=== PATIENT | male | born 1950 | race Asian ===

== ENCOUNTER → 2016-10-04 | Outpatient (CLI) | payer OTHER ==
[~2016-10-04] MED LIST: AZEL0.1S; DEXL60CA3 PO; HYDR25TA4 PO; METF-489 PO; MONT10TA34 PO; SIMV-13 PO; TAMS0.4C36 PO; TRIP2.5T9 PO
[2016-10-04 09:47] LABS: Albumin 4.3 g/dL (3.4-5.0); BUN/Creatinine Ratio 16.7; Bilirubin, Total 0.7 mg/dL (0.2-1.0); Potassium 3.7 mmol/L (3.5-5.1); Total Protein 8.1 g/dL (6.4-8.2)
== END | disposition home or self-care (01) ==
LOC: LAB 08:54
PROVIDERS: ATTEND Internal Medicine
DX: E78.5 Hyperlipidemia, unspecified (principal); Z12.39 Encounter for other screening for malignant neoplasm of breast; I10 Essential (primary) hypertension
CPT/HCPCS: 36415; 80053; 80061; 82043; 82306; 83036

== ENCOUNTER → 2016-12-26 | Outpatient (CLI) | payer OTHER ==
[2016-12-26 09:20] LABS: Basophils # (auto) 0 uL; Basophils % (auto) 0.6 % (0.0-2.0); Eosinophils # (auto) 0.4 uL; Eosinophils % (auto) 8.1 % (0.0-7.0); Hematocrit 45.6 % (41.0-53.0); Hemoglobin 15.7 g/dL (13.5-17.5); Lymphocytes # (auto) 1.7 uL; Lymphocytes % (auto) 34.5 % (10.0-50.0); Mean Corpuscular Hgb Conc. 34.5 g/dL (32.0-36.0); Mean Corpuscular Volume 89.7 fL (80.0-100.0); Mean Platelet Volume 8.8 fL (7.4-10.4); Monocytes # (auto) 0.5 uL; Monocytes % (auto) 9.7 % (0.0-12.0); Neutrophils # (auto) 2.4 uL; Neutrophils % (auto) 47.1 % (37.0-80.0); Platelet Count (auto) 234 10^3/uL (140-450); Red Cell Distribution Width 13.1 % (11.6-16.0); White Blood Cell 5.1 10^3/uL (4.4-10.8)
[2016-12-26 09:43] LABS: Albumin 4.2 g/dL (3.4-5.0); BUN/Creatinine Ratio 20.7; Bilirubin, Total 0.9 mg/dL (0.2-1.0); Calcium 8.7 mg/dL (8.5-10.1); Potassium 3.4 mmol/L (3.5-5.1); Total Protein 8.1 g/dL (6.4-8.2)
== END | disposition home or self-care (01) ==
LOC: LAB 08:50
PROVIDERS: ATTEND Internal Medicine Cardiovascular Disease
DX: R07.9 Chest pain, unspecified (principal)
CPT/HCPCS: 36415; 80053; 80061; 85025; 85730

== ENCOUNTER → 2017-01-30 | Outpatient (CLI) | payer OTHER ==
[~2017-01-30] VITALS: Ht 170.2 cm; Wt 64.6 kg
[~2017-01-30] MED LIST changes: +ADENOSINE 54 MG in GIVE UN-DILUTED 0 ML IV ONE; +ADENOSINE 56 MG in GIVE UN-DILUTED 0 ML IV ONE; +ALBUTEROL SULF 2.5 MG/0.5ML(0.5%) NEB SOLN NEB ONE; +ALBUTEROL SULF 2.5 MG/0.5ML(0.5%) NEB SOLN ONE; +IPRATROPIUM BROM 0.5 MG/2.5ML INH SOL NEB ONE; +IPRATROPIUM BROM 0.5 MG/2.5ML INH SOL ONE
== END | disposition home or self-care (01) ==
LOC: XY 07:44
PROVIDERS: ATTEND Internal Medicine Cardiovascular Disease
DX: I08.3 Combined rheumatic disorders of mitral, aortic and tricuspid valves (principal); I20.9 Angina pectoris, unspecified
CPT/HCPCS: 78452; 93017; 93306; 94640; A9500; J0153

== ENCOUNTER → 2017-03-02 | Day surgery (SDC) | payer OTHER ==
[2017-02-26 13:12] LABS: Basophils # (auto) 0 uL; Basophils % (auto) 0.7 % (0.0-2.0); CONDITION Y; Eosinophils # (auto) 0.3 uL; Eosinophils % (auto) 5.4 % (0.0-7.0); Hematocrit 43.6 % (41.0-53.0); Hemoglobin 14.9 g/dL (13.5-17.5); Lymphocytes # (auto) 1.7 uL; Lymphocytes % (auto) 33.9 % (10.0-50.0); Mean Corpuscular Hemoglobin 31.4 pg (28.0-32.0); Mean Corpuscular Hgb Conc. 34.1 g/dL (32.0-36.0); Mean Platelet Volume 9.7 fL (7.4-10.4); Monocytes # (auto) 0.4 uL; Monocytes % (auto) 8.8 % (0.0-12.0); Neutrophils # (auto) 2.6 uL; Neutrophils % (auto) 51.2 % (37.0-80.0); Platelet Count (auto) 220 10^3/uL (140-450); Red Cell Distribution Width 13.4 % (11.6-16.0); White Blood Cell 5.1 10^3/uL (4.4-10.8)
[2017-02-26 13:24] LABS: INR 0.97 (0.9-1.15); Partial Thromboplastin Time 29.5 sec (22.64-33.71); Prothrombin Time 10.6 sec (9.37-12.3)
[~2017-03-02] VITALS: Ht 170.2 cm; Wt 65.8 kg
[~2017-03-02] MED LIST changes: -ADENOSINE 54 MG in GIVE UN-DILUTED 0 ML IV ONE; -ADENOSINE 56 MG in GIVE UN-DILUTED 0 ML IV ONE; -ALBUTEROL SULF 2.5 MG/0.5ML(0.5%) NEB SOLN NEB ONE; -ALBUTEROL SULF 2.5 MG/0.5ML(0.5%) NEB SOLN ONE; +FLUMAZENIL 0.1 MG/ML INJ 10ML MDV IV ONE; -IPRATROPIUM BROM 0.5 MG/2.5ML INH SOL NEB ONE; -IPRATROPIUM BROM 0.5 MG/2.5ML INH SOL ONE; +NALOXONE HCL 0.4 MG/ML VIAL ONE; +SODIUM CHLORIDE LOCK 10 ML ONE; +diphenhdrAMINE HCL 50 MG/1 ML VL ONE
[2017-03-02] MEDS: MIDAZOLAM HCL 5 MG/ML-1ML VIAL ONE ×2 (08:59→09:06)
[2017-03-02] MEDS: fentaNYL CITRATE 100 MCG/2 ML VL ONE ×2 (08:59→09:06)
[2017-03-02 10:07] VITALS: BP 120/88
== END | disposition home or self-care (01) ==
LOC: GI 07:44
PROVIDERS: ATTEND Internal Medicine Gastroenterology
DX: K63.5 Polyp of colon (principal); K64.8 Other hemorrhoids; E11.9 Type 2 diabetes mellitus without complications
CPT/HCPCS: 36415; 45380; 82962; 85025; 85610; 85730; J1200; J2250; J3010

== ENCOUNTER 2020-05-07 21:11 | Inpatient (IN) | payer OTHER, MEDICAID ==
[~2020-05-07] VITALS: Ht 170.2 cm; Wt 61.5 kg
[~2020-05-07 21:11] MED LIST changes: -DEXL60CA3 PO; +DEXL60CA4 PO; -FLUMAZENIL 0.1 MG/ML INJ 10ML MDV IV ONE; -NALOXONE HCL 0.4 MG/ML VIAL ONE; -SODIUM CHLORIDE LOCK 10 ML ONE; -diphenhdrAMINE HCL 50 MG/1 ML VL ONE
[2020-05-07 22:14] LABS: Basophils # (auto) 0 10 ^3/uL (0-0.2); Basophils % (auto) 0.7 % (0.0-2.0); Eosinophils # (auto) 0.2 10 ^3/uL (0-0.8); Eosinophils % (auto) 4.6 % (0.0-7.0); Hematocrit 37.5 % (41.0-53.0); Hemoglobin 13.1 g/dL (13.5-17.5); Lymphocytes # (auto) 1.4 10 ^3/uL (0.4-5.4); Lymphocytes % (auto) 25.1 % (10.0-50.0); Mean Corpuscular Hemoglobin 31.6 pg (28.0-32.0); Mean Corpuscular Hgb Conc. 34.8 g/dL (32.0-36.0); Mean Corpuscular Volume 90.8 fL (80.0-100.0); Monocytes # (auto) 0.6 10 ^3/uL (0-1.3); Monocytes % (auto) 11.5 % (0.0-12.0); Neutrophils # (auto) 3.1 10 ^3/uL (1.6-8.6); Neutrophils % (auto) 58.1 % (37.0-80.0); Platelet Count (auto) 173 10^3/uL (140-450); Red Blood Cells 4.13 10^6/uL (4.5-5.90); Red Cell Distribution Width 12.7 % (11.8-14.3); White Blood Cell 5.4 10^3/uL (4.4-10.8)
[2020-05-07 22:28] LABS: INR 1.03 (0.9-1.15); Partial Thromboplastin Time 29.9 sec (23.0-31.2)
[2020-05-07 22:32] LABS: Alanine Aminotransferase 30 U/L (16-61); Albumin 3.9 g/dL (3.4-5.0); Anion Gap 10 (5-15); Aspartate Aminotransferase 39 U/L (15-37); BUN/Creatinine Ratio 15.1; Blood Urea Nitrogen 16 mg/dL (7-18); Carbon Dioxide 28 mmol/L (21-32); Chloride 100 mmol/L (98-107); GFR African American 89 mL/min; GFR Non-African American 74 mL/min; Glucose 109 mg/dL (74-106); Sodium 138 mmol/L (136-145)
[2020-05-07 22:36] LABS: Alkaline Phosphatase 64 U/L (45-117); Bilirubin, Total 0.5 mg/dL (0.2-1.0); Total Protein 7.3 g/dL (6.4-8.2)
[2020-05-07 23:33] LABS: Urine Bacteria NONE SEEN /hpf (None Seen); Urine Blood Negative /uL (Negative); Urine Mucus FEW (None Seen); Urine Specific Gravity 1.005 (1.001-1.035); Urine WBC <1 /hpf (0 - 3)
[2020-05-08] VITALS (7 sets, daily range): BP systolic 113–143; BP diastolic 69–98
[2020-05-08] MEDS ORDERED: ONDANSETRON HCL 4 MG/2 ML VIAL IV PRN (03:30)
[2020-05-08] MEDS ORDERED: NITROGLYCERIN 0.4 MG SL TAB SL PRN (03:30)
[2020-05-08] MEDS ORDERED: DOCUSATE SOD 100 MG CAP PO PRN (03:30)
[2020-05-08] MEDS ORDERED: ACETAMINOPHEN 325 MG TAB PO PRN (03:30)
[2020-05-08] MEDS ORDERED: POTASSIUM CHL 20 Meq TABLET PO ONE (03:30)
[2020-05-08] MEDS ORDERED: MORPHINE SULF INJ 2 MG/ML SYRINGE 1ML IV PRN ×2 (03:30)
[2020-05-08] MEDS: SODIUM CHLOR 0.9% PF (SALINE LOCK) 10ML VIAL/SYR IV SCH ×3 (05:47→21:48)
[2020-05-08 08:34] LABS: Basophils # (auto) 0 10 ^3/uL (0-0.2); Basophils % (auto) 0.8 % (0.0-2.0); Eosinophils # (auto) 0.2 10 ^3/uL (0-0.8); Eosinophils % (auto) 5.1 % (0.0-7.0); Hematocrit 41.1 % (41.0-53.0); Lymphocytes # (auto) 1.2 10 ^3/uL (0.4-5.4); Lymphocytes % (auto) 25.1 % (10.0-50.0); Mean Corpuscular Hemoglobin 31.3 pg (28.0-32.0); Mean Corpuscular Hgb Conc. 34.1 g/dL (32.0-36.0); Mean Corpuscular Volume 91.7 fL (80.0-100.0); Monocytes # (auto) 0.4 10 ^3/uL (0-1.3); Monocytes % (auto) 9.4 % (0.0-12.0); Neutrophils # (auto) 2.8 10 ^3/uL (1.6-8.6); Neutrophils % (auto) 59.6 % (37.0-80.0); Platelet Count (auto) 186 10^3/uL (140-450); Red Blood Cells 4.48 10^6/uL (4.5-5.90); Red Cell Distribution Width 12.9 % (11.8-14.3); White Blood Cell 4.7 10^3/uL (4.4-10.8)
[2020-05-08 08:51] LABS: Albumin 4.2 g/dL (3.4-5.0); Calcium 8.9 mg/dL (8.5-10.1); Potassium 3.7 mmol/L (3.5-5.1)
[2020-05-08 08:56] LABS: BUN/Creatinine Ratio 16.1; Bilirubin, Total 0.8 mg/dL (0.2-1.0); Total Protein 7.3 g/dL (6.4-8.2)
[2020-05-08 09:38] LABS: Cholesterol 132 mg/dL (< 200)
[2020-05-08 09:41] LABS: HDL Cholesterol 68 mg/dL (40-59); LDL Cholesterol 60 mg/dL (< 100); Triglycerides 91 mg/dL (< 150)
[2020-05-08] MEDS: HCTZ 25 MG TAB PO SCH (10:00)
[2020-05-08] MEDS: ASPirin 81 mg TAB PO SCH (10:00)
[2020-05-08] MEDS: MONTELUKAST SODIUM 10 MG TAB PO SCH (10:00)
[2020-05-08] MEDS: TAMSULOSIN HYDROCHLORIDE 0.4 MG CAP PO SCH (10:00)
[2020-05-08] MEDS: PANTOPRAZOLE 40 MG TAB PO SCH (10:00)
[2020-05-08] MEDS: MULTIPLE VITAMIN TAB PO SCH (10:00)
[2020-05-08] MEDS ORDERED: LORazepam 2MG/ML-1ML VIAL IV PRN (14:45)
[2020-05-08] MEDS ORDERED: ATORVASTATIN 20 MG TAB PO SCH ×2 (18:00)
[2020-05-09 05:13] VITALS: BP 105/70
[2020-05-09] MEDS: SODIUM CHLOR 0.9% PF (SALINE LOCK) 10ML VIAL/SYR IV SCH ×2 (05:59→14:27)
[2020-05-09 09:00] VITALS: BP 119/75
[2020-05-09] MEDS: MONTELUKAST SODIUM 10 MG TAB PO SCH (11:11)
[2020-05-09] MEDS: PANTOPRAZOLE 40 MG TAB PO SCH (11:11)
[2020-05-09] MEDS: ASPirin 81 mg TAB PO SCH (11:12)
[2020-05-09] MEDS: TAMSULOSIN HYDROCHLORIDE 0.4 MG CAP PO SCH (11:12)
[2020-05-09] MEDS: MULTIPLE VITAMIN TAB PO SCH (11:12)
[2020-05-09] MEDS: HCTZ 25 MG TAB PO SCH (11:13)
[2020-05-09 13:00] VITALS: BP 114/75
[2020-05-09 15:18] VITALS: BP 119/75
== END 2020-05-09 17:00 | disposition home or self-care (01) | DRG 69 ==
LOC: ER 21:11 → TELE 21:12 → TELE-WESTW 05-08 05:38
PROVIDERS: ADMIT Nurse Practitioner Family; ATTEND Nurse Practitioner Family
DX: G45.9 Transient cerebral ischemic attack, unspecified (principal); J45.909 Unspecified asthma, uncomplicated; E11.9 Type 2 diabetes mellitus without complications; E78.5 Hyperlipidemia, unspecified; I10 Essential (primary) hypertension; N40.0 Benign prostatic hyperplasia without lower urinary tract symptoms; E87.6 Hypokalemia; R20.0 Anesthesia of skin; R55 Syncope and collapse; M48.02 Spinal stenosis, cervical region; Z86.73 Personal history of transient ischemic attack (TIA), and cerebral infarction without residual deficits; Z79.82 Long term (current) use of aspirin; Z79.899 Other long term (current) drug therapy
CPT/HCPCS: 36415; 70450; 70551; 72125; 80053; 80061; 81001; 83036; 84443; 84484; 85025; 85610; 85730; 93005; 93306; G0378

== ENCOUNTER 2023-10-21 20:07 | Inpatient (IN) | payer OTHER, MEDICAID ==
[~2023-10-21] VITALS: Ht 170.2 cm; Wt 50.0 kg
[~2023-10-21 20:07] MED LIST changes: +MONT-8 PO; -MONT10TA34 PO; -SIMV-13 PO; +SIMV40TA18 PO; +TRIP1TAB PO; -TRIP2.5T9 PO
[2023-10-21] MEDS: SODIUM CHLORIDE 0.9% 1,000 ML IV ONE (21:35)
[2023-10-21] MEDS: SODIUM CHLORIDE 0.9% 500 ML IVB ONE (21:36)
[2023-10-21 21:41] LABS: Basophils # (auto) 0 10 ^3/uL (0-0.2); Basophils % (auto) 0.1 % (0.0-2.0); Eosinophils # (auto) 0 10 ^3/uL (0-0.8); Hematocrit 39.1 % (41.0-53.0); Hemoglobin 13.1 g/dL (13.5-17.5); Lymphocytes # (auto) 0.2 10 ^3/uL (0.4-5.4); Lymphocytes % (auto) 1.5 % (10.0-50.0); Mean Corpuscular Hemoglobin 30.3 pg (28.0-32.0); Mean Corpuscular Hgb Conc. 33.6 g/dL (32.0-36.0); Mean Corpuscular Volume 90.1 fL (80.0-100.0); Monocytes # (auto) 0.8 10 ^3/uL (0-1.3); Monocytes % (auto) 5.2 % (0.0-12.0); Neutrophils # (auto) 14.5 10 ^3/uL (1.6-8.6); Neutrophils % (auto) 93.2 % (37.0-80.0); Red Blood Cells 4.34 10^6/uL (4.5-5.90); Red Cell Distribution Width 13.9 % (11.8-14.3); White Blood Cell 15.6 10^3/uL (4.4-10.8)
[2023-10-21 21:53] VITALS: PULSE 96; RESP 26; O2SAT 97
[2023-10-21 22:00] LABS: Alanine Aminotransferase 20 U/L (7-40); Alkaline Phosphatase 52 U/L (46-116); Anion Gap 9 (5-15); Aspartate Aminotransferase 21 U/L (13-40); BUN/Creatinine Ratio 13.7 (10.0-20.0); Bilirubin, Total 0.9 mg/dL (0.2-1.0); Blood Urea Nitrogen 14 mg/dL (9-23); Calcium 8.6 mg/dL (8.7-10.4); Carbon Dioxide 23 mmol/L (20-30); Chloride 97 mmol/L (98-107); Glucose 219 mg/dL (74-106); Magnesium 1.6 mg/dL (1.6-2.6); Potassium 3.3 mmol/L (3.5-5.1); Sodium 129 mmol/L (136-145); Total Protein 6.4 g/dL (5.7-8.2)
[2023-10-21 22:53] LABS: Urine Bacteria MANY /hpf (None Seen); Urine Blood Negative /uL (Negative); Urine Clarity Clear (Clear); Urine Color Yellow (Yellow); Urine Mucus FEW (None Seen); Urine Protein, UAD TRACE (Negative); Urine Specific Gravity 1.018 (1.001-1.035); Urine Urobilinogen Normal (Negative); Urine WBC 14 /hpf (0 - 3)
[2023-10-22] MEDS: cefTRIAXone 1GM/50ML D5W 50 ML IV ONE (01:30)
[2023-10-22] MEDS: POTASSIUM CHL 20 Meq TABLET PO ONE (01:30)
[2023-10-22 02:22] LABS: Lactic Acid w/Reflex 2.2 mmol/L (0.4-2.0)
[2023-10-22 03:51] LABS: Basophils # (auto) 0 10 ^3/uL (0-0.2); Eosinophils # (auto) 0 10 ^3/uL (0-0.8); Eosinophils % (auto) 0.1 % (0.0-7.0); Hematocrit 38.3 % (41.0-53.0); Hemoglobin 12.4 g/dL (13.5-17.5); Lymphocytes # (auto) 0.4 10 ^3/uL (0.4-5.4); Lymphocytes % (auto) 2.9 % (10.0-50.0); Mean Corpuscular Hemoglobin 29.8 pg (28.0-32.0); Mean Corpuscular Hgb Conc. 32.4 g/dL (32.0-36.0); Monocytes # (auto) 0.7 10 ^3/uL (0-1.3); Monocytes % (auto) 5.9 % (0.0-12.0); Neutrophils # (auto) 11.4 10 ^3/uL (1.6-8.6); Neutrophils % (auto) 91.1 % (37.0-80.0); Red Blood Cells 4.16 10^6/uL (4.5-5.90); Red Cell Distribution Width 14.1 % (11.8-14.3); White Blood Cell 12.5 10^3/uL (4.4-10.8)
[2023-10-22] MEDS ORDERED: ACETAMINOPHEN 325 MG TAB PO PRN (04:00)
[2023-10-22] MEDS ORDERED: DEXTROSE (50%) 50ML SYRG IV PRN (04:00)
[2023-10-22] MEDS ORDERED: ONDANSETRON HCL 4 MG/2 ML VIAL IV PRN (04:00)
[2023-10-22] MEDS ORDERED: DOCUSATE SOD 100 MG CAP PO PRN (04:00)
[2023-10-22] MEDS ORDERED: VANCOMYCIN PER PHARMACY 0 MG IV SCH (04:00)
[2023-10-22] MEDS ORDERED: HYDROcodone-ACET 5/325MG TAB PO PRN (04:00)
[2023-10-22] MEDS: SODIUM CHLORIDE 0.9% 1,000 ML IV SCH ×2 (04:05→13:24)
[2023-10-22 04:07] LABS: Alanine Aminotransferase 20 U/L (7-40); Albumin 3.5 g/dL (3.2-4.8); Alkaline Phosphatase 45 U/L (46-116); Anion Gap 7 (5-15); Aspartate Aminotransferase 22 U/L (13-40); Bilirubin, Total 0.6 mg/dL (0.2-1.0); Blood Urea Nitrogen 13 mg/dL (9-23); Calcium 7.8 mg/dL (8.7-10.4); Carbon Dioxide 23 mmol/L (20-30); Chloride 100 mmol/L (98-107); Glucose 196 mg/dL (74-106); Potassium 3.3 mmol/L (3.5-5.1); Sodium 130 mmol/L (136-145); Total Protein 5.8 g/dL (5.7-8.2)
[2023-10-22] MEDS: VANCOMYCIN 1GM/200ML 200 ML IV ONE (04:10)
[2023-10-22] MEDS ORDERED: NITROGLYCERIN 0.4 MG SL TAB SL PRN (05:00)
[2023-10-22] MEDS ORDERED: MORPHINE SULFATE INJ 2 MG/ml SYRG IV PRN (05:00)
[2023-10-22] MEDS: ACCU-CHEK COMFORT CURVE STRIP VI SCH (05:58)
[2023-10-22] MEDS: InsuLIN REG 1unit/0.01ml Soln (100units/ml) SC SCH ×2 (05:59→21:52)
[2023-10-22] MEDS: CALCIUM GLUC 1,000mg/50ml-NS 50 ML IV ONE (07:43)
[2023-10-22 07:44] VITALS: PULSE 83; RESP 16; O2SAT 95
[2023-10-22] MEDS: cefTRIAXone 1GM/50ML D5W 50 ML IV SCH (09:04)
[2023-10-22] MEDS: POTASSIUM EFFERVESENT TAB 25 MEQ PO ONE (13:25)
[2023-10-22] MEDS: ASPirin 81 mg TAB PO ONE (13:25)
[2023-10-22 13:47] LABS: Triglycerides 109 mg/dL (< 150)
[2023-10-22 13:48] LABS: LDL Cholesterol 25 mg/dL (< 100)
[2023-10-22 13:49] LABS: Cholesterol 86 mg/dL (< 200); HDL Cholesterol 45 mg/dL (40-59)
[2023-10-22] MEDS ORDERED: VANCOMYCIN 500 MG in D5W 5% 100 ML IV SCH (14:00)
[2023-10-22] MEDS: TAMSULOSIN HYDROCHLORIDE 0.4 MG CAP PO SCH (17:25)
[2023-10-22 19:36] VITALS: PULSE 91; RESP 17; O2SAT 96
[2023-10-22 22:00] VITALS: TEMP 98.6
[2023-10-22] MEDS ORDERED: ATORVASTATIN 20 MG TAB PO SCH (22:00)
[2023-10-22] MEDS: ATORVASTATIN 20 MG TAB PO SCH (22:23)
[2023-10-23 05:30] LABS: Basophils # (auto) 0 10 ^3/uL (0-0.2); Eosinophils # (auto) 0 10 ^3/uL (0-0.8); Hemoglobin 12.4 g/dL (13.5-17.5); Lymphocytes # (auto) 0.7 10 ^3/uL (0.4-5.4); Lymphocytes % (auto) 6.7 % (10.0-50.0); Mean Corpuscular Hemoglobin 30.3 pg (28.0-32.0); Mean Corpuscular Hgb Conc. 33.4 g/dL (32.0-36.0); Mean Corpuscular Volume 90.8 fL (80.0-100.0); Monocytes # (auto) 0.8 10 ^3/uL (0-1.3); Monocytes % (auto) 7.5 % (0.0-12.0); Neutrophils # (auto) 9.2 10 ^3/uL (1.6-8.6); Neutrophils % (auto) 85.8 % (37.0-80.0); Red Blood Cells 4.07 10^6/uL (4.5-5.90); Red Cell Distribution Width 14.1 % (11.8-14.3); White Blood Cell 10.8 10^3/uL (4.4-10.8)
[2023-10-23 05:47] LABS: Alanine Aminotransferase 22 U/L (7-40); Alkaline Phosphatase 50 U/L (46-116); Anion Gap 7 (5-15); BUN/Creatinine Ratio 15.2 (10.0-20.0); Blood Urea Nitrogen 12 mg/dL (9-23); Calcium 8.1 mg/dL (8.7-10.4); Carbon Dioxide 20 mmol/L (20-30); Chloride 105 mmol/L (98-107); Glucose 205 mg/dL (74-106); Potassium 3.7 mmol/L (3.5-5.1); Sodium 132 mmol/L (136-145)
[2023-10-23 05:48] LABS: Albumin 3.2 g/dL (3.2-4.8); Aspartate Aminotransferase 29 U/L (13-40); Bilirubin, Total 0.5 mg/dL (0.2-1.0); Total Protein 5.5 g/dL (5.7-8.2)
[2023-10-23 10:00] VITALS: BP 102/60; PULSE 86; RESP 17; O2SAT 94
[2023-10-23] MEDS: ASPirin 81 mg TAB PO SCH (10:27)
[2023-10-23] MEDS ORDERED: ASPI-325 PO (10:44)
[2023-10-23] MEDS ORDERED: CEPH250C PO (10:44)
[2023-10-23] MEDS ORDERED: ATOR20TA50 PO (10:44)
[2023-10-24] MEDS ORDERED: LEVO500T91 PO (18:14)
== END 2023-10-23 12:05 | disposition home or self-care (01) | DRG 871 ==
LOC: ER 20:07 → EDBD 20:07 → TELE 10-22 04:48
PROVIDERS: ADMIT Internal Medicine Pulmonary Disease; ATTEND Internal Medicine Pulmonary Disease
DX: A41.9 Sepsis, unspecified organism (principal); G93.41 Metabolic encephalopathy; N39.0 Urinary tract infection, site not specified; E87.1 Hypo-osmolality and hyponatremia; E11.65 Type 2 diabetes mellitus with hyperglycemia; I10 Essential (primary) hypertension; N40.1 Benign prostatic hyperplasia with lower urinary tract symptoms; E78.5 Hyperlipidemia, unspecified; R39.11 Hesitancy of micturition; J45.909 Unspecified asthma, uncomplicated; Z86.73 Personal history of transient ischemic attack (TIA), and cerebral infarction without residual deficits; Z79.4 Long term (current) use of insulin
CPT/HCPCS: 36415; 70450; 71046; 80053; 80061; 80202; 81001; 82306; 82607; 82962; 83036; 83605; 83735; 84443; 84484; 85025; 87040; 87086; 87088; 87186; 93005; G0378; J1815; J7060